=== PATIENT | male | born 1980 | race African-American/Black ===

== ENCOUNTER 2021-01-23 19:21 | Emergency (ER) | payer SELFPAY ==
[~2021-01-23] VITALS: Ht 182.9 cm; Wt 85.2 kg
[2021-01-23 19:38] VITALS: BP 182/118
[2021-01-23] MEDS ORDERED: AMOX/K CLAV875 M1 PO (20:06)
== END 2021-01-23 20:26 | disposition home or self-care (01) | DRG 605 ==
LOC: ED 19:21
DX: S51.851A Open bite of right forearm, initial encounter (principal); S61.251A Open bite of left index finger without damage to nail, initial encounter; S61.452A Open bite of left hand, initial encounter; I10 Essential (primary) hypertension; W54.0XXA Bitten by dog, initial encounter; Y92.410 Unspecified street and highway as the place of occurrence of the external cause